=== PATIENT | male | born 1960 | race African-American/Black ===

== ENCOUNTER 2017-03-06 01:46 | Emergency (ER) | payer SELFPAY ==
[~2017-03-06] VITALS: Ht 167.6 cm; Wt 77.0 kg
[2017-03-06] MEDS ORDERED: IBUPROFEN 600MG TABLET PO ONE (04:15)
[2017-03-06 05:21] VITALS: BP 112/69
== END 2017-03-06 05:27 | disposition home or self-care (01) ==
LOC: ER 01:46
DX: S01.512A Laceration without foreign body of oral cavity, initial encounter (principal); W50.3XXA Accidental bite by another person, initial encounter; Y93.89 Activity, other specified; Y92.810 Car as the place of occurrence of the external cause
CPT/HCPCS: 99283